=== PATIENT | male | born 1970 | race American Indian/Alaskan Native ===

== ENCOUNTER 2021-05-02 12:43 | Emergency (ER) | payer OTHER ==
[2021-05-02 12:51] VITALS: BP 142/89
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
[2021-05-02] MEDS ORDERED: IBUPROFEN 800 MG TAB PO ONE (14:14)
== END 2021-05-02 15:00 | disposition home or self-care (01) ==
LOC: ED 12:43
DX: S16.1XXA Strain of muscle, fascia and tendon at neck level, initial encounter (principal); R51.9 Headache, unspecified; M79.18 Myalgia, other site; Z79.899 Other long term (current) drug therapy; V87.7XXA Person injured in collision between other specified motor vehicles (traffic), initial encounter; Y93.89 Activity, other specified; Y92.488 Other paved roadways as the place of occurrence of the external cause; Y99.8 Other external cause status
CPT/HCPCS: 70450; 72125; 99283